=== PATIENT | male | born 1980 | race African-American/Black ===

== ENCOUNTER 2018-10-03 05:24 | Emergency (ER) | payer OTHER ==
[~2018-10-03] VITALS: Ht 182.9 cm; Wt 90.7 kg
[2018-10-03 05:51] VITALS: BP 144/83
[2018-10-03] MEDS ORDERED: cefTRIAXone SOD 1,000 MG VL IM ONE (06:45)
[2018-10-03] MEDS ORDERED: ALBUTEROL SULF 2.5 MG/0.5ML(0.5%) NEB SOLN NEB ONE (06:45)
[2018-10-03] MEDS ORDERED: IPRATROPIUM BROM 0.5 MG/2.5ML INH SOL NEB ONE (06:45)
[2018-10-03] MEDS ORDERED: ATOR20TA50 PO (21:57)
[2018-10-03] MEDS ORDERED: METF-370 PO (21:57)
[2018-10-03] MEDS ORDERED: ATOR40TA52 PO (21:57)
[2018-10-03] MEDS ORDERED: LOSA-46 PO (21:57)
== END 2018-10-03 07:28 | disposition home or self-care (01) ==
LOC: ER 05:24
DX: J20.9 Acute bronchitis, unspecified (principal); J03.90 Acute tonsillitis, unspecified; F12.10 Cannabis abuse, uncomplicated
CPT/HCPCS: 71045; 94640; 96372; 99283; J0696; J7611; J7644